=== PATIENT | female | born 1995 | race Two or more races ===

== ENCOUNTER 2021-10-26 08:42 | Emergency (ER) | payer SELFPAY ==
[~2021-10-26] VITALS: Ht 157.5 cm; Wt 110.8 kg
[2021-10-26 09:03] VITALS: BP 136/65
[2021-10-26 09:39] LABS: BACTERIA,URINE FEW /HPF (0-FEW); RBC,URINE 0 /HPF (0-2)
[2021-10-26 09:42] LABS: BASO # 0.1 x10^3/uL (0.0-0.2); BASO % 1 % (0-3); EOS # 0.1 x10^3/uL (0.0-0.7); EOS % 1 % (0-3); HEMATOCRIT 37.5 % (36.0-47.0); HEMOGLOBIN 12.4 g/dL (12.0-15.5); LYMPH # 2.1 x10^3/uL (1.0-4.8); LYMPH % 25 % (24-48); MEAN CORPUSCULAR HEMOGLOBIN 28 pg (25-35); MEAN CORPUSCULAR HGB CONC 33 g/dL (31-37); MEAN CORPUSCULAR VOLUME 83 fL (79-100); MONO # 0.6 x10^3/uL (0.0-1.1); MONO % 8 % (0-9); NEUT # 5.6 x10^3/uL (1.8-7.7); NEUT % 66 % (31-73); PLATELET COUNT 260 x10^3/uL (140-400); RED CELL DISTRIBUTION WIDTH 13.8 % (11.5-14.5); WHITE BLOOD COUNT 8.6 x10^3/uL (4.0-11.0)
--- NOTE | 2021-10-26 09:46 | PHYS DOC ---
Past Medical History Past Surgical History: No Surgical History Smoking Status: Never Smoker Alcohol Use: None General Adult EDM: Chief Complaint: FLANK PAIN HPI: HPI: Patient is a 26-year-old female presents to the emergency department complaining of lower abdominal pain and low back pain for the past month, patient reports pain and burning with urination for the past month. Patient denies increased urinary frequency, hematuria or other dysuria. Patient denies seeing blood in her stool. Patient denies nausea, vomiting, or diarrhea or constipation. Patient reports her last menstrual cycle was September 03, 2021. Patient denies recent fever or chills. States she does not take prescription medications, has not tried [id number] medications for symptoms. Patient does complain of vaginal discharge without specific strong odor. Denies vaginal itching or lesions to her vagina. Patient denies dizziness, syncopal or near syncopal episodes. Patient denies chest pains, chest or nasal congestion, denies shortness of breath. Patient denies other physical complaints or physical concerns. Patient reports she has been 2 times in the past, her youngest is 8 years old. Patient states she does not think she can get stating that she believes her is unable to get her . Does report monogamous unprotected sex with her . Review of Systems: Review of Systems: 14 body systems of review of systems have been reviewed. See HPI for pertinent positives and negative responses, otherwise all other systems are negative, nonpertinent or noncontributory. Constitutional: Negative except as outlined in HPI above. Skin: Negative except as outlined in HPI above. Eyes: Negative except as outlined in HPI above. HENT: Negative except as outlined in HPI above. Respiratory: Negative except as outlined in HPI above. Cardiovascular: Negative except as outlined in HPI above. GI: Negative except as outlined in HPI above. : Negative except as outlined in HPI above. Musculoskeletal: Negative except as outlined in HPI above. Integument: Negative except as outlined in HPI above. Neurologic: Negative except as outlined in HPI above. Endocrine: Negative except as outlined in HPI above. Lymphatic: Negative except as outlined in HPI above. Psychiatric: Negative except as outlined in HPI above. Heart Score: C/O Chest Pain: No Risk Factors: Risk Factors: DM, Current or recent (<one month) smoker, HTN, HLP, family history of CAD, obesity. Risk Scores: Score 0 - 3: 2.5% MACE over next 6 weeks - Discharge Home Score 4 - 6: 20.3% MACE over next 6 weeks - Admit for Clinical Observation Score 7 - 10: 72.7% MACE over next 6 weeks - Early Invasive Strategies Physical Exam: PE: Constitutional: Well developed, well nourished, no acute distress, non-toxic appearance. 26-year-old female in no apparent distress. HENT: Normocephalic, atraumatic. Eyes: Conjunctiva normal, no discharge. Neck: Normal range of motion. Cardiovascular: Distal cap refill less than 2 seconds, no cyanosis appreciated. Lungs & Thorax: Patient is in no respiratory distress, no adventitious lung s ounds appreciated. Abdomen: Bowel sounds normal, soft, no masses, no pulsatile masses. No bruising or skin discoloration of the abdomen. Abdomen round, patient morbidly obese, BMI 44.7. There is nonspecific generalized pain to the lower abdomen and pelvic area. Negative rebound tenderness, negative Irwin sign, negative McBurney's point tenderness, negative psoas sign. Skin: Warm, dry, no erythema, no rash. Back: Negative left-sided or right-sided CVA TTP, pain to palpation on left- sided and right-sided lumbar muscular structures, no midline spinal pain. Extremities: No tenderness, no cyanosis, no clubbing, ROM intact, no edema. Neurologic: Alert and oriented X 3, normal motor function, normal sensory function, no focal deficits noted. Psychologic: Affect normal, judgement normal, mood normal. 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 There are no lesions of the external vaginal structures. No cervical motion tenderness per bimanual exa m. Patient tolerated well. GC/chlamydia as well as wet prep cultures obtained and sent to lab. Current Patient Data: Labs: Laboratory Tests Test 10/26/21 08:54 POC Urine HCG, Qualitative Hcg positive (Negative) Vital Signs: Vital Signs Date Time Temp Pulse Resp B/P (MAP) Pulse Ox O2 Delivery O2 Flow Rate FiO2 10/26/21 09:03 98.3 73 18 136/65 (88) 100 Room Air 98.3 EKG: EKG: [] Radiology/Procedures: Radiology/Procedures: REASON: Severe pelvic pain with PROCEDURE: OB <14 WKS W/TV First trimester ultrasound less than 14 weeks: Clinical indications: Severe pelvic pain with . Findings: Transabdominal study: The uterus and ovaries are not visualized due to an empty urinary bladder and overlying bowel gas. Therefore, transvaginal sonography will be performed. Transvaginal study: Number of fetuses: Single. Average crown-rump length: 0.44 cm which corresponds to an approximate gestational age of 6 weeks and 1 day +/- 4 days. EDC is June 20, 2022. Sac shape and amniotic fluid volume: Normal. heart rate: 122 beats per minute Placenta location: Indeterminate due to the early stage of gestation. Cervical length: Greater than 3.0 cm. A nabothian cyst is seen within the cervix measuring 10 mm in size. Extrachorionic hemorrhage: None. Uterus: No uterine fibroids are seen. Maternal ovaries: Right ovary: 2.3 cm x 2.5 cm x 3.5 cm. Normal. Color-flow Doppler: Present Left ovary: 1.3 cm x 2.1 cm x 2.3 cm. Normal. Color-flow Doppler: Present Adnexa: no adnexal masses are seen. Free fluid: None. Impression: Single intrauterine gestation with approximate gestational age of 6 weeks and 1 day with an EDC of June 20, 2022. heart rate is 122 beats per minute. Electronically signed by: Stephane Meier MD (10/26/2021 10:16 AM) [id number] Course & Med Decision Making: Course & Med Decision Making Pertinent Labs and Imaging studies reviewed. (See chart for details) 26-year-old female, vital signs reviewed and within normal limits, presents to emergency room today complaining of burning with urination and low pelvic pain with low back pain for the past month. Physical examination concerning for urinary tract infection versus UTI. Will order urinalysis assay, urine pr egnancy test. Pelvic examination with GC/chlamydia 4/wet prep. The patient is for urine test, urinalysis assay reveals a large amount of leukocyte esterase with urine bacteria without urine nitrates. Suspicious for simple cystitis. Discussed findings with patient, patient appears happy that she is , states again that she did not think her to get her . Discussed with patient because of low pelvic pain will order CBC, CMP, hCG quantitative, face, OB less than 14 weeks with transvaginal ultrasound. Patient is amenable to ED evaluation planning. Ultrasound reveals approximate 6-week 1 day (4 days ) intrauterine . Wet prep is unremarkable. Will start patient on Keflex regimen for suspicious of urinary tract infection during . Patient's hCG quant is 22,248. There is an EDC for ultrasound of June 20, 2022. Discussed all findings with patient, strict follow-up with OB care, will provide information for OB physician on discharge instructions for follow-up, reviewed return to ER precautions and concerns. There are GC/chlamydia cultures pending, from visualization during pelvic examination there is a low likelihood of GC/chlamydia infection, along with patient having no concerns for STIs, will defer treatment at this time, patient gave verbal understanding of and is amenable to ED discharge planning. Discussed with the patient all findings and diagnostic testing as well as the need to follow-up with their primary care provider for further evaluation and treatment or return to the ED if any new or worsening symptoms. Strict return precautions were also discussed at length, the patient voiced understanding and agreement with the discharge planning. The patient was nontoxic in appearance, in no apparent distress, and hemodynamically stable at the time of disposition. Dragon Disclaimer: Dragheather Disclaimer: This electronic medical record was generated, in whole or in part, using a voice recognition dictation system. Departure Departure Impression: Primary Impression: Abdominal pain during in first trimester Additional Impression: Urinary tract infection during in first trimester Disposition: HOME / SELF CARE / HOMELESS Condition: GOOD Referrals: MIGUEL CORNELL MD Patient Instructions: Abdominal Pain During , - Urinary Tract Infection Additional Instructions: Te vieron hoy por ardor al orinar. Se descubri hoy que est embarazada. Debido a que presentaba dolor abdominal se le realiz ezequiel ecografa, esta muestra un embarazo intrauterino berkley con ezequiel gestacin aproximada de 6 semanas 1 da. La fecha de parto estimada es el 3 de diciembre 2021. Davis orina muestra signos preocupantes de infeccin. Comenzaron con un antibitico para esta infeccin del tracto urinario, le enviar la receta de ms antibiticos a davis farmacia. Por favor, tmelo deb se indica hasta que est completo. Es importante que establ ezca atencin obsttrica primaria. He dado ezequiel recomendacin para el Dr. Miguel Cornell, que es especialista en obstetricia. Sin embargo, puede elegir cualquier mdico obstetra o centro de davis eleccin. Por favor llame maana para ezequiel hugo para ser visto pronto. Hgales saber que davis nivel cuantitativo de beta hCG hoy es 22,248. Tambin infrmeles que est recibiendo tratamiento para ezequiel infeccin del tracto urinario, ya que es muy importante que vuelva a controlar davis orina para asegurarse de que el antibitico est funcionando, ya que las infecciones del tracto urinario chelsea el embarazo pueden ser preocupantes. Por favor, mantngase cleve hidratado. Joyce por visitar nuestro Departamento de Emergencias. Fue un placer atenderlo hoy en el departamento de emergencias y le agradecemos que nos haya confiado davis atencin. Si surge algn problema adicional, no dude en volver a visitarnos. Petrona un seguimiento con davis proveedor de atencin primaria para que puedan planificar atencin adicional si es necesario y conocer el problema que tuvo. Si los sntomas empeoran, regrese al Departamento de Emergencias. Cualquier sntoma preocupante que comience, deb dolor en el pecho, falta de aire, debilidad o entumecimiento en un lado del cuerpo, fiebre arlin o cualquier otro sntoma preocupante, regresa a la cleopatra de emergencias. You were seen today for burning with urination. It was found today that you are . Because you had abdominal pain, an ultrasound was performed, this shows a healthy intrauterine with a approximate gestation of 6 weeks 1 day. The your estimated due date is June 202021. Your urine does show concerning signs of infection. You were started on a antibiotic for this urinary tract infection, I am sending the prescription for more antibiotics to your pharmacy. Please take as directed until complete. It is important that you establish primary OB care. I have given a recommendation for Dr. Miguel Cornell who is an OB specialist. However you may choose any OB doctor or facility of your choice. Please call tomorrow for an appointment to be seen soon. Let them know your quantitative beta hCG level today is 22,248. Also let them know that you are being treated for urinary tract infection as it is very important to have your urine rechecked to ensure the antibiotic is working as urinary tract infections during can be concerning. Please stay well-hydrated. Thank you for visiting our Emergency Department. It was a pleasure taking care of you today in the emergency department and we appreciate you trusting us with your care. If any additional problems come up don't hesitate to return to visit us. Please follow up with your primary care provider so they can plan additional care if needed and know about the problem that you had. If symptoms worsen come back to the Emergency Department. Any concerning symptoms that start such as chest pain, shortness of air, weakness or numbness on one side of the body, running high fevers or any other concerning symptoms return to the ER. Scripts Cephalexin (CEPHALEXIN) 500 Mg Tablet 1 TAB PO QID for UTI for 7 Days, #28 TAB 0 Refills Prov: MIGUEL HELMS CASTING TECHNICIAN 10/26/21 MIGUEL HLEMS APRN Oct 26, 2021 09:46
[2021-10-26 09:50] LABS: CALCIUM 8.8 mg/dL (8.5-10.1); CREATININE 0.6 mg/dL (0.6-1.0); POTASSIUM 3.7 mmol/L (3.5-5.1)
[2021-10-26 09:56] LABS: ALBUMIN 3.7 g/dL (3.4-5.0); TOTAL BILIRUBIN 0.4 mg/dL (0.2-1.0); TOTAL PROTEIN 7.3 g/dL (6.4-8.2)
--- NOTE | 2021-10-26 10:19 | RAD ---
First trimester ultrasound less than 14 weeks: Clinical indications: Severe pelvic pain with . Findings: Transabdominal study: The uterus and ovaries are not visualized due to an empty urinary bladder and o verlying bowel gas. Therefore, transvaginal sonography will be performed. Transvaginal study: Number of fetuses: Single. Average crown-rump length: 0.44 cm which corresponds to an approximate gestational age of 6 weeks and 1 day +/- 4 days. EDC is June 20, 2022. Sac shape and amniotic fluid volume: Normal. heart rate: 122 beats per minute Placenta location: Indeterminate due to the early stage of gestation. Cervical length: Greater than 3.0 cm. A nabothian cyst is seen within the cervix measuring 10 mm in s ize. Extrachorionic hemorrhage: None. Uterus: No uterine fibroids are seen. Maternal ovaries: Right ovary: 2.3 cm x 2.5 cm x 3.5 cm. Normal. Color-flow Doppler: Present Left ovary: 1.3 cm x 2.1 cm x 2.3 cm. Normal. Color-flow Doppler: Present Adnexa: no adnexal masses are seen. Free fluid: None. Impression: Single intrauterine gestation with approximate gestational age of 6 weeks and 1 day with an EDC of June 20, 2022. heart rate is 122 beats per minute. Electronically signed by: Stephane eMier MD (10/26/2021 10:16 AM) [id number]
[2021-10-26] MEDS ORDERED: CEPH500T PO (11:06)
[2021-10-26] MEDS ORDERED: CEPHALEXIN 250 MG CAPSULE. PO STA (11:06)
[2021-10-26] MEDS ORDERED: CEPHALEXIN 250 MG CAPSULE. ONE (11:07)
[2021-10-27 14:11] LABS: GC PROBE Negative (Negative)
== END 2021-10-26 11:15 | disposition home or self-care (01) ==
LOC: ER 08:42
DX: O23.41 Unspecified infection of urinary tract in pregnancy, first trimester (principal); N39.0 Urinary tract infection, site not specified; Z3A.01 Less than 8 weeks gestation of pregnancy
CPT/HCPCS: 76801; 76817; 80053; 81001; 81025; 83690; 84702; 85025; 87086; 87491; 87591; 99284; Q0111